=== PATIENT | male | born 1985 | race Caucasian/White ===

== ENCOUNTER 2016-05-20 23:28 | Emergency (ER) | payer SELFPAY ==
[2016-05-20] MEDS ORDERED: TETANUS,DIPHTHERIA,PERTUSSIS 1 EA SYG IM ONE (23:56)
[2016-05-20] MEDS ORDERED: CEPHALEXIN MONOHYDRATE 500 MG CAP PO ONE (23:57)
[2016-05-20] MEDS ORDERED: CEPHALEXIN 500MG CAP (ER DISP) PO ONE (23:57)
--- NOTE | 2016-05-21 00:02 | ED.PDOC ---
History of Present Illness - General Stated Complaint: Hit board-had nail in it. Time Seen by Provider: 05/20/16 23:47 Source: patient, RN notes reviewed, Vital Signs reviewed Exam Limitations: no limitations - History of Present Illness Initial Comments: Patienti s a homeless 30 y/o male who got upset today and hit a board. A nail was sticking out of it and it pierced his right hand. It now hurts, and he needs a tetanus shot. Timing/Duration: 4-6 hours Severity: moderate Improving Factors: nothing Worsening Factors: other - touching it Associated Symptoms: denies symptoms Allergies/Adverse Reactions: Allergies NO KNOWN ALLERGY Allergy (Unverified 07/21/14 10:04) Home Medications: Ambulatory Orders Cephalexin Monohydrate [Keflex] 500 mg PO BID #14 cap 05/21/16 NK 05/21/16 Review of Systems - Review of Systems Constitutional: States: no symptoms reported EENTM: States: no symptoms reported Respiratory: States: no symptoms reported Cardiology: States: no symptoms reported Gastrointestinal/Abdominal: States: no symptoms reported Genitourinary: States: no symptoms reported Musculoskeletal: States: no symptoms reported Skin: States: lesions Neurological: States: no symptoms reported Endocrine: States: no symptoms reported Hematologic/Lymphatic: States: no symptoms reported All other Systems: Reviewed and Negative Past Medical History (General) - Patient Medical History Hx Asthma: No Hx of COPD: No Hx Diabetes: No Hx MRSA: Yes - 2014 MRSA Source:: Wound - Vaccination History Hx Tetanus, Diphtheria Vaccination: Yes - less than 5 years Hx Influenza Vaccination: No Hx Pneumococcal Vaccination: No - Social History Hx Alcohol Use: No Hx Substance Use: No Family Medical History - Family History Mother Living Status: Hx Family Congestive Heart Failure: Yes Physical Exam - Physical Exam General Appearance: Alert, Comfortable, No apparent distress Ears, Nose, Throat: hearing grossly normal, normal ENT inspection Respiratory: no respiratory distress Extremity: normal range of motion Neurologic: alert, normal mood/affect Skin Exam: other - puncture wound to hypothenar area right hand. Progress - EKG/XRAY/CT XRAY: hand Xray Comments: No fracture or jorge involvement - interpreted by myself Departure - Departure Clinical Impression: Unknown tetanus toxoid immunization status Puncture wound of hand without complication Qualifiers: Encounter type: initial encounter Laterality: right Qualifier Code: (T82.265Q) Puncture wound without foreign body of right hand, initial encounter Disposition: Discharge to Home or Self Care Departure Forms: ED Discharge - Pt. Copy, Patient Portal Self Enrollment Prescriptions: Cephalexin Monohydrate [Keflex] 500 mg PO BID #14 cap Home Medications: Ambulatory Orders Cephalexin Monohydrate [Keflex] 500 mg PO BID #14 cap 05/21/16 NK 05/21/16 Additional Instructions: Follow up for any indication of infection not resolved with antibiotics.
[2016-05-21 00:08] VITALS: BP 116/71; TEMP 97.9; O2SAT 97
--- NOTE | 2016-05-21 00:16 | RAD ---
EXAM: Hand,Right 2 Views CLINICAL INDICATION: 30-year-old male with RIGHT hand puncture wound. TECHNIQUE: Two views RIGHT hand were obtained in AP, and lateral projections COMPARISON: None. FINDINGS: There is no fracture or dislocation. The joint spaces are preserved. No soft tissue abnormalities are seen. IMPRESSION: No acute radiographic abnormality. Electronically signed by: Julienne Ashley MD 05/21/2016 12:15 AM CDT
== END 2016-05-21 00:41 | disposition home or self-care (01) ==
LOC: ER 23:28
DX: S61.431A Puncture wound without foreign body of right hand, initial encounter (principal); Z23 Encounter for immunization; Z59.0 Homelessness; Z86.14 Personal history of Methicillin resistant Staphylococcus aureus infection; W45.0XXA Nail entering through skin, initial encounter; Y92.9 Unspecified place or not applicable

== ENCOUNTER 2018-12-06 15:37 | Emergency (ER) | payer SELFPAY ==
[2018-12-06 16:06] VITALS: BP 136/81; TEMP 98.2; O2SAT 98
[2018-12-06] MEDS ORDERED: CLINDAMYCIN PHOSPHATE 150 MG/ML VIAL IM ONE (16:25)
[2018-12-06] MEDS ORDERED: HYDROcodone 10MG/APAP 325MG 1 EA TAB PO ONE (16:26)
--- NOTE | 2018-12-06 16:29 | ED.PDOC ---
History of Present Illness - General Chief Complaint: Dental/Mouth Stated Complaint: dental pain/swelling Time Seen by Provider: 12/06/18 16:25 Source: patient Exam Limitations: no limitations Additional Information: Mister Raza Ch is a 33-year-old male who presents to the ED with chief complaint of dental pain beginning 2-3 days ago. Patient indicates that he has bad teeth in general and believes that he has a dental abscess. Pain and mild swelling to the left lower jaw. Negative fever, chills, nausea, or vomiting. Patient is asymptomatic other than his toothache. Patient indicates he does not have a dentist. - History of Present Illness Allergies/Adverse Reactions: Allergies NO KNOWN ALLERGY Allergy (Verified 12/06/18 16:05) Home Medications: Ambulatory Orders Acetaminophen W/ Codeine [Tylenol W/ CODEINE #3] 2 ea PO Q6H PRN #20 12/06/18 Amoxicillin 500 mg PO TID #21 cap 12/06/18 Review of Systems - Review of Systems Constitutional: States: no symptoms reported EENTM: States: see HPI. Denies: throat swelling Respiratory: States: no symptoms reported. Denies: cough, short of breath Cardiology: States: no symptoms reported. Denies: chest pain, palpitations Gastrointestinal/Abdominal: States: no symptoms reported. Denies: abdominal pain, nausea, vomiting Musculoskeletal: States: no symptoms reported Skin: States: no symptoms reported Neurological: States: no symptoms reported Hematologic/Lymphatic: States: no symptoms reported All other Systems: Reviewed and Negative Past Medical History (General) - Patient Medical History Hx Asthma: No Hx of COPD: No Hx Diabetes: No Hx MRSA: Yes - 2014 MRSA Source:: Wound Surgical History: no surgical history - Vaccination History Hx Tetanus, Diphtheria Vaccination: Yes - less than 5 years Hx Influenza Vaccination: No Hx Pneumococcal Vaccination: No - Social History Hx Tobacco Use: Yes Hx Alcohol Use: No Hx Substance Use: No Family Medical History - Family History Mother Living Status: Hx Family Congestive Heart Failure: Yes Physical Exam - Physical Exam General Appearance: Alert, Comfortable, No apparent distress Nasal Exam: normal inspection Throat Exam: dental tenderness - patient with widespread dental decay. Left mandibular premolar tooth broken to the gumline with surrounding edema and tenderness to palpation to the buccal aspect of the gum., other - face with very mild edema over the left aspect centrally of the mandible. Mild to moderate tenderness to palpation. Negative erythema. Neck: non-tender, full range of motion, supple, normal inspection Cardiovascular/Respiratory: regular rate, rhythm, no M/R/G Neurologic: no motor/sensory deficits, alert Skin Exam: normal color Progress - Progress Progress: 12/06/18 16:32 Patient clinically with a dental abscess. I offered patient to perform I&D of the visible abscess but patient declines. He indicates that he will follow up with an OMFS physician tomorrow for definitive management. Will give clindamycin and analgesics in the ED and DC home on amoxicillin and Tylenol 3. Patient does not have a dentist and he is referred to OMFS department at [facility] in [place]. Vital signs stable, patient NAD and looks clinically well and is safe for discharge with outpatient follow-up. Follow-up instructions, discharge instructions and return to ED precautions discussed with patient. Patient voices understanding and willingness to comply with instructions. Patient happy with plan. Departure - Departure Clinical Impression: Dental abscess Time of Disposition: 16:34 Disposition: Discharge to Home or Self Care Condition: Good Departure Forms: ED Discharge - Pt. Copy, Patient Portal Self Enrollment Instructions: DI for Dental Pain Prescriptions: Acetaminophen W/ Codeine [Tylenol W/ CODEINE #3] 2 ea PO Q6H PRN #20 PRN Reason: Pain Amoxicillin 500 mg PO TID #21 cap Home Medications: Ambulatory Orders Acetaminophen W/ Codeine [Tylenol W/ CODEINE #3] 2 ea PO Q6H PRN #20 12/06/18 Amoxicillin 500 mg PO TID #21 cap 12/06/18
== END 2018-12-06 17:09 | disposition home or self-care (01) ==
LOC: ER 15:37
DX: K04.7 Periapical abscess without sinus (principal); K02.9 Dental caries, unspecified; S02.5XXA Fracture of tooth (traumatic), initial encounter for closed fracture; X58.XXXA Exposure to other specified factors, initial encounter; Y92.9 Unspecified place or not applicable; Z87.891 Personal history of nicotine dependence; Z86.14 Personal history of Methicillin resistant Staphylococcus aureus infection

== ENCOUNTER 2019-07-25 15:58 | Emergency (ER) | payer OTHER ==
--- NOTE | 2019-07-25 16:14 | ED.PDOC ---
History of Present Illness - General Time Seen by Provider: 07/25/19 16:13 Source: patient - History of Present Illness Initial Comments: 33 YO male who presents with chief complaint of left pelvic pain following acute injury at work just prior to arrival. Patient works at [employer], states that he got caught behind a metal gate and a cow pushed on the gate and he sustained blunt smashing injury between the 2 metal harden at the level of the lower left pelvis and hip region. Reports sharp 10/10 pain immediately to the left lateral upper thigh region with radiation into the left buttocks, lower abdomen, and scrotum, pain worse with standing/walking and palpation to the area, took Tylenol 2000 mg prior to arrival with relief down to 7/10 pain. Reports some abrasion injury to bilateral upper thighs but denies any deformity or bruising. Reports he tried to urinate prior to arrival but was having some difficulty. Reports some nausea but no emesis. Denies any injury to the thoracic region, head, neck, upper extremities. Denies any weakness, numbness, chest pain, dyspnea. Allergies/Adverse Reactions: Allergies NO KNOWN ALLERGY Allergy (Verified 07/25/19 17:10) Home Medications: Ambulatory Orders Acetaminophen W/ Codeine [Tylenol W/ CODEINE #3] 2 ea PO Q6H PRN #20 12/06/18 RX: Amoxicillin 500 mg PO TID #21 cap 12/06/18 Review of Systems - Review of Systems Review of Systems: 07/25/19 17:42 as per HPI All other Systems: Reviewed and Negative Past Medical History (General) - Patient Medical History Hx Asthma: No Hx of COPD: No Hx Diabetes: No Hx MRSA: Yes - 2014 MRSA Source:: Wound - Vaccination History Hx Tetanus, Diphtheria Vaccination: Yes - less than 5 years Hx Influenza Vaccination: No Hx Pneumococcal Vaccination: No - Social History Hx Tobacco Use: Yes Hx Alcohol Use: No Hx Substance Use: No Family Medical History - Family History Mother Living Status: Hx Family Congestive Heart Failure: Yes Physical Exam - Physical Exam General Appearance: Alert, No apparent distress Eye Exam: bilateral normal Ears, Nose, Throat: hearing grossly normal, normal ENT inspection, normal pharynx Neck: non-tender, full range of motion, supple, normal inspection Respiratory: chest non-tender, lungs clear, normal breath sounds, no respiratory distress, no accessory muscle use Cardiovascular/Chest: normal peripheral pulses, regular rate, rhythm, no edema, no gallop, no JVD, no murmur Peripheral Pulses: radial,right: 2+, radial,left: 2+ Gastrointestinal/Abdominal: soft, no organomegaly, tenderness - Moderate throughout the lower abdomen without guarding or rebound or masses, other - Examination of the penis, testicles, scrotum appear normal. No testicular enlargement or tenderness to palpation. Back Exam: normal inspection, no CVA tenderness, no vertebral tenderness Extremity: other - Abrasion injuries noted to bilateral hip regions but no noted bruising/swelling/deformity to lower extremities. Moderate TTP to left lateral thigh in the left buttocks region. Moderately decreased ROM to left lower extremity due to pain. Strength and sensation appear intact throughout pulses normal throughout. Neurologic: reservations specialist II-XII nml as tested, no motor/sensory deficits, alert, normal mood/affect, oriented x 3 Skin Exam: normal color, warm/dry Progress - Progress Progress: 07/25/19 16:15 Acute pelvic pain -Consider pelvic fracture, hip fracture, femur fracture, intra-abdominal injury, bladder injury, other -Patient stable, vitals WNL -Obtain blood work, UA, x-ray of the pelvis and left hip, CT of the abdomen and pelvis once labs back -Place PIV, Toradol 30 mg IV, Zofran 4 mg IV, Dilaudid 1 mg IV for pain 07/25/19 19:00 -Patient remained stable, vitals WNL. He did void tiffanie blood upon urination with some burning. -Labs show UA with TNTC RBCs. WBC is elevated to 15,600 with left shift but no bandemia-suspect due to acute trauma. Lab work otherwise is pretty unremarkable -X-ray and CT imaging of the abdomen pelvis reveal multiple pelvic fractures, worse on the left side with comminution and some mild posterior displacement of the left superior pubic rami. There are some inflammatory/contusive changes noted around the bladder and a thin <1 cm left pelvic sidewall hematoma noted but no free fluid noted within the pelvis or gross bladder deformity. -Given his injury of significant mechanism with pelvic fractures, will need to transfer to trauma center for management of the pelvic fractures and also for urgent urology consultation given concern for possible bladder/urethral injury given his gross hematuria. -Spoke with transfer table operator at [facility] in [place] who is consulting with the urologist who will call me back 07/25/19 19:20 -[facility] call back and advised that urology there would not be able to handle bladder injury in the setting of the pelvic fractures. Therefore called [facility] in [place] who is excepted the patient. He has remained stable and will go via ground EMS. -Given his leukocytosis and dysuria/hematuria, cover the patient with Rocephin 1 g IV. Tetanus booster given. Pelvic binder in place. Chi Chapin MD Billing #[id number] 07/25/19 16:14 IV Care:Saline Lock per Protoc QSHIFT Telemetry .ONCE Sodium Chloride 0.9% (Flush) [Saline Flush Syringe] 10 ml IV PRN PRN 07/25/19 16:45 Hold Metformin x 48Hrs [id number] 07/25/19 17:50 Urine Culture Stat 07/25/19 18:57 [id number] SODIUM [Rocephin] 1 gm Sodium Chl 0.9% 50Ml Min-Bag+ [NS 50ml MINI-BAG+] 50 ml IVPB ONCE Laboratory Results - last 24 hr 07/25/19 07/25/19 07/25/19 16:10 16:10 17:50 WBC 15.6 H RBC 4.11 L Hgb 13.0 L Hct 37.7 L MCV 91.7 MCH 31.5 H MCHC 34.4 RDW 14.2 Plt Count 246 MPV 7.0 L Absolute Neuts (auto) 13.50 H Absolute Lymphs (auto) 0.80 L Absolute Monos (auto) 1.20 H Absolute Eos (auto) 0.00 Absolute Basos (auto) 0.00 Neutrophils % 86.6 H Lymphocytes % 5.4 L Monocytes % 7.8 Eosinophils % 0.0 L Basophils % 0.2 Sodium 137 Potassium 3.6 Chloride 110 Carbon Dioxide 20 L Anion Gap 10.6 L BUN 14 Creatinine 0.95 BUN/Creatinine Ratio 14.7 Random Glucose 183 H Serum Osmolality 279.0 Calcium 8.4 Total Bilirubin 0.5 AST 25 ALT 15 Alkaline Phosphatase 58 Serum Total Protein 7.1 Albumin 4.5 Globulin 2.6 Albumin/Globulin Ratio 1.7 Urine Color Brown Urine Appearance Cloudy Urine pH 5.5 Ur Specific [place] >= 1.030 Urine Protein >=300 H Urine Glucose (UA) Negative Urine Ketones Trace Urine Blood Large H Urine Nitrite Negative Urine Bilirubin Moderate Urine Urobilinogen 1.0 Ur Leukocyte Esterase Negative Urine RBC Tntc H Urine WBC Obscured by rbc's H Ur Epithelial Cells Obscured by rbc's Urine Bacteria Obscured by rbc's H - EKG/XRAY/CT EKG: Sinus - NSR, HR 90, no ST elevations or Q waves, axis normal, intervals normal, no prior EKG for comparison XRAY: chest - No acute processes per my read Departure - Departure Clinical Impression: Tiffanie hematuria Pelvic fracture Qualifiers: Encounter type: initial encounter Pelvic bone location: multiple parts Fracture type: closed Fracture alignment: with stable disruption of pelvic ring Qualified Code(s): S32.810A - Multiple fractures of pelvis with stable disruption of pelvic ring, initial encounter for closed fracture Time of Disposition: 19:23 Disposition: Transfer to Hospital Condition: Fair Departure Forms: ED Discharge - Pt. Copy, Patient Portal Self Enrollment Instructions: DI for Trauma Home Medications: Ambulatory Orders Acetaminophen W/ Codeine [Tylenol W/ CODEINE #3] 2 ea PO Q6H PRN #20 12/06/18 RX: Amoxicillin 500 mg PO TID #21 cap 12/06/18 Transfer to Outside Facility - Transfer Information Decision to Transfer Date: 07/25/19 Decision to Transfer Time: 19:24 Reason for Transfer: required specialist not available - urology, trauma service Accepting Provider:: Dr. Sosa Accepting Facility: [facility]
[2019-07-25] MEDS ORDERED: SODIUM CHLORIDE 0.9% 1000ML 1,000 ML IVS ONE (16:15)
[2019-07-25] MEDS: SODIUM CHLORIDE 0.9% (FLUSH) 10 ML SYG IV PRN ×2 (16:24→19:19)
--- NOTE | 2019-07-25 16:28 | RAD ---
EXAM DESCRIPTION: Chest,1 View CLINICAL HISTORY: blunt trauma to pelvic area COMPARISON: None Available. TECHNIQUE: One view radiograph of the chest FINDINGS: Cardiac silhouette shows normal heart size. Pulmonary vascularity is within normal limits. Lungs show no confluent infiltrates. No pleural effusion. No pneumothorax. No acute osseous abnormality. IMPRESSION: No acute cardiopulmonary process. Electronically signed by: Hieu Rosa MD 07/25/2019 4:27 PM CDT
--- NOTE | 2019-07-25 16:32 | RAD ---
EXAM DESCRIPTION: Pelvis,2 or More Views CLINICAL HISTORY: 33 years Male, blunt trauma to pelvic area COMPARISON: None. Findings: Two view(s)/radiograph(s) Comminuted fractures of the left pelvis to include the right superior pubic ramus with extension towards the pubic symphysis. No pubic symphysis widening. There is also a comminuted fracture of the left inferior pubic rami. No dislocation. No other fracture is identified. No focal soft tissue swelling. IMPRESSION: Comminuted fractures of the left superior and inferior pubic rami. Electronically signed by: Raymond Esapna MD 07/25/2019 4:31 PM CDT
[2019-07-25] MEDS ORDERED: KETOROLAC TROMETHAMINE INJ 30 MG/ML VIAL IV ONE (16:45)
[2019-07-25] MEDS ORDERED: ONDANSETRON INJ 4 MG/2 ML VIAL IV ONE (16:45)
[2019-07-25] MEDS ORDERED: HYDROmorphone HCL INJ 2 MG/ML VIAL IV ONE (17:39)
--- NOTE | 2019-07-25 18:03 | CT ---
EXAM DESCRIPTION: CT ABDOMEN AND PELVIS WITH CONTRAST CLINICAL HISTORY: blunt injury to lower abd/pelvis, lower abd pain COMPARISON: Pelvic radiograph same day. TECHNIQUE: CT of the abdomen and pelvis are performed after IV contrast administration. No oral contrast was given. Multiplanar reconstructions were obtained. FINDINGS: Mild left basilar dependent atelectasis. The liver is normal in contour and enhancement. No focal liver laceration or subcapsular hematoma. The gallbladder is unremarkable without calcified gallstone. No biliary ductal dilatation. The spleen, pancreas, and kidneys enhance normally. No focal laceration. No hydronephrosis or nephrolithiasis. No focal bowel wall thickening or bowel obstruction. The appendix is normal. No free fluid or free air. No lymphadenopathy. Acute left superior pubic ramus mildly displaced comminuted fracture. The largest fracture fragment measures 2 cm and is posterior displaced by approximately 1 cm. Comminuted fracture of the left inferior pubic ramus. Additional minimal/nondisplaced fractures of the right superior pubic ramus root and right inferior pubic ramus (adjacent to the ischial tuberosity). Small nondisplaced right parasymphyseal superior cortex fracture (coronal image 44). The bilateral hip joints appears to be intact without proximal femur fracture or hip dislocation. The bilateral sacroiliac joints are intact without diastases. Benign right intertrochanteric fibrosclerosing lesion. There is associated thin left pelvic sidewall hematoma measuring up to 0.9 cm in thickness. There is mild fat stranding surrounding the bladder and within the anterior extraperitoneal space likely representing contusive changes. Limited evaluation of the bladder (without contrast within the bladder) demonstrate no gross bladder deformity. No active contrast extravasation. IMPRESSION: 1. Multifocal acute anterior pelvic fractures, more severe on the left side. 2. Thin left pelvic sidewall hematoma. 3. Mild fat stranding and contusive changes surrounding the bladder without gross bladder deformity. If there is concern for subtle bladder injury, CT cystography can be considered. 4. No abdominal solid organ injury. This exam was performed according to our departmental dose-optimization program, which includes automated exposure control, adjustment of the mA and/or kV according to patient size and/or use of iterative reconstruction technique. Electronically signed by: Michael Lopez DO 07/25/2019 6:01 PM CDT
[2019-07-25] MEDS ORDERED: TETANUS,DIPHTHERIA,PERTUSSIS 1 EA SYG IM ONE (18:57)
[2019-07-25] MEDS ORDERED: cefTRIAXone SODIUM 1 GM in SODIUM CHL 0.9% 50ML MIN-BAG+ 50 ML IVPB ONE (18:57)
[2019-07-25 21:13] VITALS: BP 124/79; TEMP 98.2; O2SAT 98
== END 2019-07-25 20:05 | disposition short-term general hospital (02) ==
LOC: ER 15:58
DX: S32.810A Multiple fractures of pelvis with stable disruption of pelvic ring, initial encounter for closed fracture (principal); D72.829 Elevated white blood cell count, unspecified; R11.0 Nausea; S70.312A Abrasion, left thigh, initial encounter; S70.311A Abrasion, right thigh, initial encounter; R31.0 Gross hematuria; F17.200 Nicotine dependence, unspecified, uncomplicated; W23.0XXA Caught, crushed, jammed, or pinched between moving objects, initial encounter; Y99.0 Civilian activity done for income or pay; Y92.9 Unspecified place or not applicable
CPT/HCPCS: 36415; 71045; 72190; 74177; 80053; 81001; 85025; 87086; 90471; 90715; 93005; A4216; J0696; J1170; J1885; J2405; J7030; J7050